=== PATIENT | male | born 1945 | race Caucasian/White ===

== ENCOUNTER 2020-06-13 11:29 | Outpatient (REF) | payer MEDICARE, MEDICAID, SELFPAY ==
[2020-06-13 13:59] LABS: MANUAL DIFF FLAG NO
[2020-06-13 14:04] LABS: Basophils Absolute Auto 0.1 X10*3/uL (0.0-0.2); Basophils Percent Auto 0.7 % (0-2); Eosinophils Absolute Auto 0.1 X10*3/uL (0.0-0.4); Eosinophils Percent Auto 1.9 % (0-4); Hematocrit 39.2 % (42-52); Hemoglobin 13.3 g/dl (14.0-18.0); Imm Gran Abs Auto 0.01 X10*3/uL (0.00-0.03); Imm Gran Pct Auto 0.1 % (0.0-0.4); Lymphocytes Absolute Auto 1.6 X10*3/uL (1.2-4.9); Lymphocytes Percent Auto 23.3 % (20-40); Mean Corpuscular HGB Conc 33.9 g/dl (31.0-36.0); Mean Corpuscular Hemoglobin 30.6 pg (27.0-33.0); Mean Corpuscular Volume 90.3 fL (80-98); Mean Platelet Volume 12.2 fL (9.4-12.4); Monocytes Absolute Auto 0.6 X10*3/uL (0.1-1.2); Monocytes Percent Auto 8.9 % (2-11); Neutrophils Absolute Auto 4.4 X10*3/uL (2.0-8.3); Neutrophils Percent Auto 65.1 % (45-73); Platelet Count 219 X10*3/uL (160-400); Red Blood Count 4.34 X10*6/uL (4.60-5.80); Red Cell Distribution Width 13.3 % (11.0-16.0); White Blood Count 6.8 X10*3/uL (4.8-10.8)
[2020-06-13 14:37] LABS: Alanine Aminotransferase 29 U/L (0-40); Albumin Level 4.3 g/dL (3.5-5.0); Alkaline Phosphatase 58 U/L (39-117); Anion Gap 14 (12-20); Aspartate Amino Transferase 28 U/L (5-37); Bilirubin Total 0.6 mg/dL (0.0-1.0); Blood Urea Nitrogen 14 mg/dL (9-16); Calcium 9.3 mg/dL (8.4-10.2); Carbon Dioxide 27 mmol/L (22-29); Chloride 103 mmol/L (96-108); Estimated Glomerular Filt Rate > 60; Glucose Random 106 mg/dL (60-115); Potassium 5.2 mmol/l (3.3-5.1); Sodium 139 mmol/L (135-145); Total Protein 6.9 g/dL (6.5-8.0)
[2020-06-13 14:38] LABS: Estimated Average Glucose 128 mg/dL; Hemoglobin A1c % 6.1 %
== END 2020-06-13 11:30 | disposition home or self-care (01) ==
LOC: HO.10HDL 11:29
PROVIDERS: Visit Provider Internal Medicine
DX: I10 Essential (primary) hypertension (principal); E11.9 Type 2 diabetes mellitus without complications
CPT/HCPCS: 36415; 80053; 82043; 83036; 85025

== ENCOUNTER 2020-10-01 10:40 | Outpatient (REF) | payer MEDICARE, MEDICAID, SELFPAY ==
[2020-10-01 11:07] LABS: Hematocrit 40.9 % (42-52); Hemoglobin 13.9 g/dl (14.0-18.0); Mean Corpuscular Hemoglobin 30.5 pg (27.0-33.0); Mean Corpuscular Volume 89.7 fL (80-98); Mean Platelet Volume 11.2 fL (9.4-12.4); Platelet Count 233 X10*3/uL (160-400); Red Blood Count 4.56 X10*6/uL (4.60-5.80); Red Cell Distribution Width 13.2 % (11.0-16.0); White Blood Count 8.5 X10*3/uL (4.8-10.8)
[2020-10-01 11:20] LABS: INTERNATIONAL NORM RATIO 1.1 (0.9-1.1); Prothrombin Time 13.4 SEC (10.8-13.0)
[2020-10-01 11:35] LABS: Alanine Aminotransferase 36 U/L (0-40); Albumin Level 4.5 g/dL (3.5-5.0); Alkaline Phosphatase 68 U/L (39-117); Anion Gap 10 (12-20); Aspartate Amino Transferase 33 U/L (5-37); Bilirubin Direct 0.3 mg/dL (0.0-0.5); Bilirubin Total 0.8 mg/dL (0.0-1.0); Blood Urea Nitrogen 15 mg/dL (9-16); Carbon Dioxide 30 mmol/L (22-29); Chloride 105 mmol/L (96-108); Cholesterol 122 mg/dL; Estimated Glomerular Filt Rate > 60; Glucose Random 108 mg/dL (60-115); HDL Cholesterol 37 mg/dL; LDL Cholesterol Calculated 68 mg/dl; Potassium 5.3 mmol/L (3.3-5.1); Sodium 140 mmol/L (135-145); Total Protein 7.4 g/dL (6.5-8.0); Triglycerides 86 mg/dL
[2020-10-01 11:49] LABS: Estimated Average Glucose 114 mg/dL; Hemoglobin A1C 135.9382 umol/L; Hemoglobin A1c % 5.6 %
[2020-10-01 11:56] LABS: Thyroid Stimulating Hormone 1.09 uIU/mL (0.32-4.0)
== END 2020-10-01 10:41 | disposition home or self-care (01) ==
LOC: HO.LAB 10:40
PROVIDERS: PCP Internal Medicine; Visit Provider Internal Medicine Cardiovascular Disease
DX: I48.3 Typical atrial flutter (principal); I10 Essential (primary) hypertension; I49.5 Sick sinus syndrome; E11.9 Type 2 diabetes mellitus without complications; E78.2 Mixed hyperlipidemia
CPT/HCPCS: 36415; 80051; 80061; 80076; 82565; 82947; 83036; 83735; 84443; 84520; 85027; 85610

== ENCOUNTER 2020-11-25 07:12 | Outpatient (REF) | payer MEDICARE, MEDICAID, SELFPAY ==
[2020-11-25 07:40] LABS: MANUAL DIFF FLAG NO
[2020-11-25 07:46] LABS: Basophils Percent Auto 0.5 % (0-2); Eosinophils Absolute Auto 0.1 X10*3/uL (0.0-0.4); Eosinophils Percent Auto 1.4 % (0-4); Hematocrit 41.4 % (42-52); Imm Gran Abs Auto 0.02 X10*3/uL (0.00-0.03); Imm Gran Pct Auto 0.2 % (0.0-0.4); Lymphocytes Absolute Auto 1.7 X10*3/uL (1.2-4.9); Lymphocytes Percent Auto 19.2 % (20-40); Mean Corpuscular HGB Conc 33.8 g/dl (31.0-36.0); Mean Corpuscular Hemoglobin 30.4 pg (27.0-33.0); Mean Platelet Volume 11.8 fL (9.4-12.4); Monocytes Absolute Auto 0.7 X10*3/uL (0.1-1.2); Monocytes Percent Auto 7.7 % (2-11); Neutrophils Absolute Auto 6.1 X10*3/uL (2.0-8.3); Platelet Count 223 X10*3/uL (160-400); Red Cell Distribution Width 13.7 % (11.0-16.0); White Blood Count 8.6 X10*3/uL (4.8-10.8)
[2020-11-25 08:14] LABS: Anion Gap 13 (12-20); Blood Urea Nitrogen 20 mg/dL (9-16); Calcium 10.5 mg/dL (8.4-10.2); Carbon Dioxide 28 mmol/L (22-29); Chloride 103 mmol/L (96-108); Estimated Glomerular Filt Rate 48; Glucose Random 186 mg/dL (60-115); Potassium 5.3 mmol/L (3.3-5.1); Sodium 139 mmol/L (135-145)
== END 2020-11-25 07:13 | disposition home or self-care (01) ==
LOC: HO.LAB 07:12
PROVIDERS: PCP Internal Medicine; Visit Provider Internal Medicine Cardiovascular Disease
DX: Z01.810 Encounter for preprocedural cardiovascular examination (principal); I49.5 Sick sinus syndrome
CPT/HCPCS: 36415; 80048; 85025

== ENCOUNTER 2021-04-27 07:40 | Emergency (ER) | payer MEDICARE, MEDICAID, SELFPAY ==
[2021-04-27 07:43] VITALS: BP 181/70; PULSE 71; RESP 19; TEMP 36.6; O2SAT 100; BMI 21.5
--- NOTE | 2021-04-27 08:47 | ED_ITS ---
HPI - General Adult General Chief complaint: General Medical Stated complaint: bleeding testicle Time Seen by Provider: 04/27/21 08:30 History of Present Illness HPI narrative: Patient is 75 years old presented today complaining that he has bleeding from his testicles. No pain. No systemic complaints. Patient claims that happened yesterday and happened again today. Has a history of being on aspirin. Related Data Allergies Allergy/AdvReac Type Severity Reaction Status Date / Time No Known Allergies Allergy Unknown UNKNOWN Unverified 04/18/20 15:54 [NO KNOWN ALLERGIES] Review of Systems Review of Systems: No fever no chills no nausea no vomiting no dizziness no no systemic complaints All systems reviewed otherwise negative Yes all other systems are reviewed and are negative [facility] Past Medical History Attestation statement: The following information was validated with the patient. Medical History Diabetes HTN (hypertension) Social History Social History Advance Directives: No Advance Directives Information Provided: No Physical Exam Vital Signs: Vital Signs: Last Vital Signs Temp 98 F 04/27/21 07:43 Pulse 71 04/27/21 07:43 Resp 19 04/27/21 07:43 BP 181/70 H 04/27/21 07:43 Pulse Ox 100 04/27/21 07:43 Body Mass Index 21.5 Appearance: Alert. Oriented X3. No acute distress. Eyes: Pupils equal, round and reactive to light. ENT: Pharynx normal. Neck: Normal inspection. Neck supple. No lymph nodes noted. No crepitus CVS: Normal heart rate and rhythm. Pulses normal. Normal S1 and S2 Respiratory: No respiratory distress. Breath sounds normal. No Wheezing. No rales Abdomen: Soft and nontender. No rigidity. No distention. good BS x4 Skin: Skin warm and dry. Normal skin color. Normal skin turgor. Genital exam. There is no lesion noted in the scrotum. Or the penis. There is no discharge on stripping of the penis. There is no testicular tenderness. Normal exam. Extremities: No lower extremity edema. Neurovascular intact to all extremities. No Lacerations. No Rash Neuro: Oriented X 3. No motor deficit. No sensory deficit. Moving all extermities. No slurred speech Medical Decision Making MDM Narrative Medical decision making narrative: Well-appearing no acute distress. Will get hemoglobin and monitor. Hemoglobin is normal. No acute bleeding. Will send patient to follow-up with urology. In stable condition. Lab Data Result diagrams: 04/27/21 09:03 Labs: Lab Results 04/27/21 Range/Units 09:03 WBC 9.0 (4.8-10.8) X10*3/uL RBC 4.42 L (4.60-5.80) X10*6/uL Hgb 13.4 L (14.0-18.0) g/dl Hct 39.3 L (42-52) % MCV 88.9 (80-98) fL MCH 30.3 (27.0-33.0) pg MCHC 34.1 (31.0-36.0) g/dl RDW 13.4 (11.0-16.0) % Plt Count 193 (160-400) X10*3/uL MPV 11.0 (9.4-12.4) fL Immature Gran % (Auto) 0.2 (0.0-0.4) % Neut % (Auto) 75.8 H (45-73) % Lymph % (Auto) 16.2 L (20-40) % Slope % (Auto) 5.8 (2-11) % Eos % (Auto) 1.3 (0-4) % Baso % (Auto) 0.7 (0-2) % Lymph # (Auto) 1.5 (1.2-4.9) X10*3/uL Slope # (Auto) 0.5 (0.1-1.2) X10*3/uL Eos # (Auto) 0.1 (0.0-0.4) X10*3/uL Baso # (Auto) 0.1 (0.0-0.2) X10*3/uL Abs Immat Gran (auto) 0.02 (0.00-0.03) X10*3/uL Absolute Neuts (auto) 6.8 (2.0-8.3) X10*3/uL Absolute Nucleated RBC 0.000 (0.0-0.012) X10*3/uL Nucleated RBC % (auto) 0.0 (0.0-0.2) /100WBC Discharge Plan Discharge Clinical Impression: Bleeding Patient Disposition: Home, Self-Care Additional Instructions: Apply local pressure if bleeding restarts Please follow-up with urology on an outpatient basis. Referrals: Hood Casey III, MD [Physician] - 2 days
[2021-04-27 09:07] LABS: MANUAL DIFF FLAG NO
[2021-04-27 09:09] LABS: Basophils Absolute Auto 0.1 X10*3/uL (0.0-0.2); Basophils Percent Auto 0.7 % (0-2); Eosinophils Absolute Auto 0.1 X10*3/uL (0.0-0.4); Eosinophils Percent Auto 1.3 % (0-4); Hematocrit 39.3 % (42-52); Hemoglobin 13.4 g/dl (14.0-18.0); Imm Gran Abs Auto 0.02 X10*3/uL (0.00-0.03); Imm Gran Pct Auto 0.2 % (0.0-0.4); Lymphocytes Absolute Auto 1.5 X10*3/uL (1.2-4.9); Lymphocytes Percent Auto 16.2 % (20-40); Mean Corpuscular HGB Conc 34.1 g/dl (31.0-36.0); Mean Corpuscular Hemoglobin 30.3 pg (27.0-33.0); Mean Corpuscular Volume 88.9 fL (80-98); Monocytes Absolute Auto 0.5 X10*3/uL (0.1-1.2); Monocytes Percent Auto 5.8 % (2-11); Neutrophils Absolute Auto 6.8 X10*3/uL (2.0-8.3); Neutrophils Percent Auto 75.8 % (45-73); Platelet Count 193 X10*3/uL (160-400); Red Blood Count 4.42 X10*6/uL (4.60-5.80); Red Cell Distribution Width 13.4 % (11.0-16.0)
== END 2021-04-27 10:51 | disposition home or self-care (01) ==
PROVIDERS: Emergency Provider Emergency Medicine Emergency Medical Services; PCP Internal Medicine
DX: R31.9 Hematuria, unspecified (principal); N50.812 Left testicular pain; N50.811 Right testicular pain; Z79.899 Other long term (current) drug therapy
CPT/HCPCS: 36415; 85025; 99283

== ENCOUNTER 2021-11-12 06:57 | Outpatient (REF) | payer MEDICARE, MEDICAID, SELFPAY ==
[2021-11-12 07:11] LABS: MANUAL DIFF FLAG NO
[2021-11-12 07:21] LABS: Basophils Absolute Auto 0.1 X10*3/uL (0.0-0.2); Basophils Percent Auto 0.9 % (0-2); Eosinophils Absolute Auto 0.2 X10*3/uL (0.0-0.4); Eosinophils Percent Auto 2.4 % (0-4); Hematocrit 41.7 % (42.0-52.0); Hemoglobin 14.1 g/dl (14.0-18.0); Imm Gran Abs Auto 0.02 X10*3/uL (0.00-0.03); Imm Gran Pct Auto 0.2 % (0.0-0.4); Lymphocytes Absolute Auto 1.6 X10*3/uL (1.2-4.9); Lymphocytes Percent Auto 20.3 % (20-40); Mean Corpuscular HGB Conc 33.8 g/dl (31.0-36.0); Mean Corpuscular Hemoglobin 29.5 pg (27.0-33.0); Mean Corpuscular Volume 87.2 fL (80.0-98.0); Mean Platelet Volume 10.6 fL (9.4-12.4); Monocytes Absolute Auto 0.8 X10*3/uL (0.1-1.2); Monocytes Percent Auto 9.5 % (2-11); Neutrophils Absolute Auto 5.4 x10*3/uL (2.0-8.3); Neutrophils Percent Auto 66.7 % (45-73); Platelet Count 292 X10*3/uL (160-400); Red Blood Count 4.78 X10*6/uL (4.60-5.80); Red Cell Distribution Width 13.4 % (11.0-16.0); White Blood Count 8.1 X10*3/uL (4.8-10.8)
[2021-11-12 07:34] LABS: Estimated Average Glucose 134 mg/dL; Hemoglobin A1c % 6.3 %
[2021-11-12 07:47] LABS: Alanine Aminotransferase 52 U/L (0-40); Albumin Level 4.4 g/dL (3.5-5.0); Alkaline Phosphatase 73 U/L (39-117); Anion Gap 12 (12-20); Aspartate Amino Transferase 41 U/L (5-37); Bilirubin Total 0.9 mg/dL (0.0-1.0); Blood Urea Nitrogen 13 mg/dL (9-16); Calcium 10.5 mg/dL (8.4-10.2); Carbon Dioxide 30 mmol/L (22-29); Chloride 101 mmol/L (96-108); Cholesterol 156 mg/dL; Estimated Glomerular Filt Rate 59; Glucose Fasting 163 mg/dL (60-99); HDL Cholesterol 30 mg/dL; LDL Cholesterol Calculated 100 mg/dl; Potassium 5.6 mmol/L (3.3-5.1); Sodium 137 mmol/L (135-145); Total Protein 7.5 g/dL (6.5-8.0); Triglycerides 133 mg/dL
[2021-11-12 08:09] LABS: Prostate Specific Antigen 2.73 ng/mL (<0.05-4.0)
[2021-11-12 09:11] LABS: Creatinine Urine 155.08 mg/dL; Microalbum/Creatinine Ratio Ur 14.1 ug/mg cr
== END 2021-11-12 06:58 | disposition home or self-care (01) ==
LOC: HO.LAB 06:57
PROVIDERS: PCP Internal Medicine; Visit Provider Internal Medicine
DX: E11.9 Type 2 diabetes mellitus without complications (principal); I10 Essential (primary) hypertension; N40.1 Benign prostatic hyperplasia with lower urinary tract symptoms; N13.8 Other obstructive and reflux uropathy; E78.00 Pure hypercholesterolemia, unspecified; Z12.5 Encounter for screening for malignant neoplasm of prostate
CPT/HCPCS: 36415; 80053; 80061; 82043; 83036; 84153; 85025

== ENCOUNTER 2022-05-06 09:52 | Outpatient (REF) | payer MEDICARE, MEDICAID, SELFPAY ==
[2022-05-06 10:48] LABS: Estimated Average Glucose 131 mg/dL; Hemoglobin A1c % 6.2 %
[2022-05-06 11:12] LABS: Alanine Aminotransferase 43 U/L (0-40); Albumin Level 4.3 g/dL (3.5-5.0); Alkaline Phosphatase 61 U/L (39-117); Anion Gap 17 (12-20); Aspartate Amino Transferase 34 U/L (5-37); Bilirubin Total 0.6 mg/dL (0.0-1.0); Blood Urea Nitrogen 15 mg/dL (9-16); Calcium 10.1 mg/dL (8.4-10.2); Carbon Dioxide 26 mmol/L (22-29); Chloride 99 mmol/L (96-108); Estimated Glomerular Filt Rate 52; Glucose Random 217 mg/dL (60-115); Potassium 5.2 mmol/L (3.3-5.1); Sodium 137 mmol/L (135-145); Total Protein 7.2 g/dL (6.5-8.0)
== END 2022-05-06 09:53 | disposition home or self-care (01) ==
LOC: HO.LAB 09:52
PROVIDERS: PCP Internal Medicine; Visit Provider Internal Medicine
DX: I12.9 Hypertensive chronic kidney disease with stage 1 through stage 4 chronic kidney disease, or unspecified chronic kidney disease (principal); E11.22 Type 2 diabetes mellitus with diabetic chronic kidney disease; N18.9 Chronic kidney disease, unspecified
CPT/HCPCS: 36415; 80053; 83036

== ENCOUNTER 2022-08-09 06:35 | Emergency (ER) | payer MEDICARE, MEDICAID, SELFPAY ==
[2022-08-09 06:43] VITALS: BP 166/68; PULSE 67; RESP 18; TEMP 36.2; O2SAT 99; BMI 20.6
[2022-08-09 07:51] VITALS: BP 147/76; PULSE 63; RESP 18; TEMP 36.2; O2SAT 99
--- NOTE | 2022-08-09 09:50 | ED_ITS ---
HPI - General Adult General Chief complaint: General Medical Stated complaint: Unable to use bathroom Time Seen by Provider: 08/09/22 09:06 Source: patient and family Mode of arrival: ambulatory Limitations: no limitations History of Present Illness HPI narrative: 77-year-old primarily Turkmen-speaking gentleman with past medical history constipation external hemorrhoids presents to the emergency department at the request of his , with the son, for complaints of a 2 day history of constipation. Patient states it is been recommended by his primary care provider that he uses MiraLax daily for treatment of chronic constipation, so however; patient has not been using MiraLax for several weeks. He states he drinks 2 large glasses of water and 1 cup of coffee daily. He reports he has positive flatus and denies any change in his appetite. He denies any abdominal pain, nausea, vomiting, or weight loss. Onset (ago): day(s) (2) Associated symptoms: denies other symptoms Treatments prior to arrival: none Related Data Allergies Allergy/AdvReac Type Severity Reaction Status Date / Time No Known Allergies Allergy Unknown UNKNOWN Verified 08/09/22 06:53 [NO KNOWN ALLERGIES] Review of Systems Review of Systems: Yes all other systems are reviewed and are negative [facility] Past Medical History Attestation statement: The following information was validated with the patient. Source: old records reviewed and obtained from family Medical History Diabetes HTN (hypertension) Social History Social History Advance Directives: No Physical Exam ED Vital Signs: Vital Signs - 24 hr 08/09/22 06:43 08/09/22 07:51 Temperature 97.2 F 97.2 F Pulse Rate 67 63 Respiratory Rate 18 18 Blood Pressure 166/68 H 147/76 H Pulse Oximetry 99 99 Oxygen Delivery Method Room Air Room Air BMI result Body Mass Index 20.6 Nursing notes and vital signs reviewed. GENERAL APPEARANCE: A&0 x 4, generally well appearing, no acute distress HENMT: Normal to inspection, atraumatic, face symmetrical. Normal external ears, nose, and oropharynx clear. EYE: PERRLA, EOM intact, structures appear normal NECK: Supple without lymphadenopathy. No stiffness or restricted ROM. CHEST: Normal to inspection HEART: Normal rate and regular rhythm, normal S1/S2, no M/R/G LUNGS: LS CTA, moving air well. Able to speak in complete sentences. No crackles, wheezes, or rhonchi auscultated ABDOMEN: Soft, nontender, nondistended. Normal bowel sounds noted BACK: No CVAT, no obvious deformity EXTREMITIES: Moving all extremities without difficulty. No cyanosis, clubbing, or edema. Normal capillary refill. NEUROLOGICAL: Alert and oriented, moving all 4 extremities with equal strength. CN not formally tested but appearing grossly intact. Observed to ambulate with normal gait. Cognition normal SKIN: Warm and dry without any lesions, rash, or visible sores PSYCH: Cooperative, normal affect, normal thought process Medical Decision Making Medical Decision Making MDM Narrative: 77-year-old primarily Turkmen-speaking gentleman with past medical history constipation external hemorrhoids presents to the emergency department at the request of his , with the son, for complaints of a 2 day history of constipation. Patient states it is been recommended by his primary care prov ider that he uses MiraLax daily for treatment of chronic constipation, so however; patient has not been using MiraLax for several weeks. Abdomen soft, nontender, with normal bowel sounds in all 4 quadrants with no discomfort with abdominal palpation. Patient states he has positive flatus. History and physical exam consistent with chronic constipation worsened by not following his prescribed bowel regimen of daily MiraLax. Patient educated to use 4 oz of MiraLax daily as prescribed by his primary care provider for control of chronic constipation. Educated that he may use twmo-pij-[id number] Dulcolax, Senna, suppositories, or a Fleet enema if he has not moved his bowels within the next air to. Recommend mid to return to the emergency department if he is unable to move his bowels in the next 2 days, unable to pass gas, has abdominal pain, nausea/vomiting, decreased appetite, or any other concerning emergent symptoms. Patient is safe for discharge at this time. HPI, PE, and plan discussed with patient and family with no unanswered questions at this time. Patient educated to return to the emergency department with new, worsening, or concerning emergent symptoms. Recommended to follow-up with her primary care provider for further treatment and management. *Refer to Course for additional information on consultations, diagnostic interpretation, consultations, emergency department stay, conversations with patient and family, shared decision making with patient, and more information on medical decision making* Discharge Plan Discharge Clinical Impression: Constipation Patient Disposition: Home, Self-Care Instructions: Constipation (ED), High Fiber Diet (ED), Fleet Enema (ED) Additional Instructions: You have constipation. Please use 4 oz of MiraLax daily as prescribed by your primary care provider for control of chronic constipation. You may use [id number]-klc-ekekpso Dulcolax to soften stools and he has bowel movements or Senna which is a laxative which will stimulate the bowels to evacuate stool. If you have not moved your bowels in several days and are uncomfortable, you may use axlx-wdl-pnwnyus enemas or suppositories as needed. Please increase your water consumption to aid in softening stools. Please return to the emergency department if you are unable to move her bowels in the next 2 days, if you are unable to pass gas, if you have abdominal pain, if you have difficulty eating, or if you have nausea/vomiting, or any other concerning emergent symptoms. Please follow-up with your primary care provider for further treatment and management. Referrals: Arcadio Faustin MD [Primary Care Provider] - Interventions: ED Discharge Assessment Last Done: 08/09/22 09:37 Discharge Date/Time: 08/09/22 09:37 Print Language: Turkmen
== END 2022-08-09 09:37 | disposition home or self-care (01) ==
PROVIDERS: Emergency Provider Emergency Medicine Emergency Medical Services; PCP Internal Medicine
DX: K59.00 Constipation, unspecified (principal)
CPT/HCPCS: 99283

== ENCOUNTER 2023-02-11 13:21 | Emergency (ER) | payer MEDICARE, MEDICAID, SELFPAY ==
--- NOTE | ~2023-02-11 | XR_ITS ---
EXAMINATION: XR LUMBOSACRAL SPINE CLINICAL INFORMATION: Fall, pain. COMPARISON: None available. TECHNIQUE: Three views of the lumbosacral spine. FINDINGS: There is mild straightening of 6 lumbar lordosis. The vertebral heights are normal. There is grade 1 anterolisthesis L5 over S1. Rest of the alignment is normal. Mild loss of L5-S1 disc level. Rest of the lumbar disc levels are normal. No aggressive lytic or sclerotic process seen. The paravertebral soft tissues are normal. XR/XR lumbar spine 2-3V IMPRESSION: Grade 1 anterolisthesis L5 over S1. Mild degenerative disc changes L5-S1 disc level. No visible acute fracture or dislocation seen.
--- NOTE | ~2023-02-11 | CT_ITS ---
EXAMINATION: CT HEAD/BRAIN WITHOUT CONTRAST CT CERVICAL SPINE WITHOUT CONTRAST CLINICAL INDICATION: Fall with head strike on thinners. COMPARISON: CT brain 03/18/[address] cervical spine 04/08/2019. TECHNIQUE: 5 mm thin axial and reformatted 2 mm thin sagittal and coronal images of brain were obtained. Subsequently axial 3 mm thin and reformatted 2 mm thin sagittal and coronal images of cervical spine were obtained. This CT examination was performed using dose optimization technique as appropriate, variously including the following: Automated exposure control Adjustment of MA and/or KV according to patient size(this includes techniques or standardized protocols for targeted exams where dose is matched to indication/reason for exam; extremities or head. Use of iterative reconstruction techniques. DLP: 879 mGy-cm FINDINGS: BRAIN: There is no acute intra-axial, extra-axial bleed, masses or midline shift. There is no acute infarction in evolution. There is no edema. The busch to white matter differentiation is maintained normal. Both lateral ventricles are symmetrical in size and configuration without enlargement. Bone windows reveal no calvarial abnormality. The paranasal sinuses and mastoid air cells are well aerated. There is no scalp soft tissue abnormality. CERVICAL SPINE: There is straightening of cervical lordosis. The vertebral heights and alignment is normal. There is severe loss of C6-C7 disc height with ventral spondylosis. No visible acute fracture, dislocation or subluxation seen. No bony erosive changes. There is no neck mass or abnormal lymphadenopathy. The airway is widely patent. The lung apices are clear. The prevertebral and paravertebral soft tissues are normal. CT/CT cervical spine wo IV con IMPRESSION: No acute intracranial process seen. No acute fracture, dislocation or subluxation seen in cervical spine.
--- NOTE | 2023-02-11 13:31 | ED.GENADULT ---
HPI - General Adult General Chief complaint: Back Pain/Injury Stated complaint: fall back and waist inj Time Seen by Provider: 02/11/23 16:23 Source: patient, family (son), RN notes reviewed and old records reviewed Mode of arrival: ambulatory Limitations: other (History of Alzheimer's dementia) History of Present Illness HPI narrative: 77-year-old male past medical history significant for Alzheimer's dementia, diabetes, hypertension presents to evaluation after a fall that happened yesterday. Most of the history is obtained from the patient's son who is bedside He reports the patient sustained a fall last night while trying to help his clean a spell in the kitchen. Appendage there was soap on the floor which caused the patient to slip and fall down. This was not witnessed, as the patient's was turn around time The patient is unsure if he hit his head or not but complains of mostly lower back pain. He usually takes Tylenol for his pain but did not take any Tylenol today He states his pain is mild Denies numbness, tingling, weakness Related Data Previous Rx's Medication Instructions Recorded baclofen 5 mg tablet 5 mg PO BID PRN muscle spasms #10 02/11/23 tabs Allergies Allergy/AdvReac Type Severity Reaction Status Date / Time No Known Allergies Allergy Unknown UNKNOWN Verified 08/09/22 06:53 [NO KNOWN ALLERGIES] Review of Systems Constitutional: Constitutional: Denies headache(s) and Denies weakness ENT: Denies headache(s) Musculoskeletal: Musculoskeletal: Reports back pain, Denies numbness and Denies tingling Neurologic: Denies headache(s), Denies numbness, Denies tingling and Denies weakness PMFSH Past Medical History Medical History Diabetes HTN (hypertension) Social History Social History Advance Directives: No Advance Directives Information Provided: Yes Physical Exam ED Vital Signs: Vital Signs - 24 hr 02/11/23 13:32 Temperature 97.4 F Pulse Rate 72 Respiratory Rate 18 Blood Pressure 151/75 H Pulse Oximetry 98 Oxygen Delivery Method Room Air BMI result Body Mass Index 21.7 Const General: healthy appearing, comfortable, no acute distress, alert and awake Nutritional Appearance: well nourished Orientation/consciousness: patient oriented x3 HENMT Head: Yes normocephalic and Yes atraumatic Eyes Eyelids: Yes eyelids normal Conjunctivae: conjunctivae normal Sclerae: sclerae normal Corneas: corneas normal Pupils: Equal, round and reactive pupils present EOM: EOMs intact bilaterally Neck Neck: Yes full ROM Resp Effort & Inspection: normal respiratory effort, able to speak in complete sentences and not labored Back/Spine/Pelvis Other: No C-spine, T-spine or lumbar spinal/vertebral tenderness Good range of motion to lower extremities with a negative straight leg raise bilaterally Skin General skin exam: no rashes or lesions noted and elasticity normal Neuro General: patient oriented x3 Cranial nerves: Yes Equal, round and reactive pupils present and Yes Bilaterally intact EOM present Cognition (Neuro): normal cognition Extrem Other: Moving all extremities well without any obvious deformities Course Course Course Narrative: This is a rapid medical exam: Additional HPI, ROS, PE not included below will be deferred to primary provider. Patient is a 77-year old male with history of Alzheimer's, DM, HTN presenting to the emergency department with complaint of lower back pain after a slip and fall at home yesterday. Son states that the patient's had soap on the kitchen floor and the patient slipped. Son denies loss of consciousness, patient does not recall the event. Patient did not want to come to the ED last night. He is not anticoagulated, but takes daily ASA. Patient was medicated with Tylenol by his . Son denies any nausea or vomiting. Plan: x-ray, CT head and neck Medical Decision Making Medical Decision Making [facility] Narrative: 77-year-old male presents for evaluation after a fall that happened last night. He complains of mostly lower back pain. It was not witnessed the patient is a poor historian, therefore a CT scan of brain and cervical spine were ordered. These images did not show any acute traumatic injuries. He does have straightening of lumbar and cervical spine. This was discussed with the patient and his son at bedside. The patient will treat his symptoms with Tylenol and we will prescribe a few doses of baclofen for continued pain Differential Diagnosis Muscle strain Radiculopathy Intracranial hemorrhage COVID fracture Concussion Contusion Vertebral fracture Independent Interpretation I performed an independent interpretation of an: Plain X-Ray (No acute compression fractures. Agree with radiology reading) Radiology Impression Discussion of test interpretation with radiology: I have reviewed the radiologist's reading. (No acute intracranial hemorrhage, mass effect.) Radiologist Impression: C-spine with loss of normal cervical lordosis but no acute fractures Discharge Plan Discharge Clinical Impression: Strain of lumbar region Patient Disposition: Home, Self-Care Instructions: Acute Low Back Pain (ED) Additional Instructions: The x-ray of your lower back showed mild arthritis There were no broken bones You may continue to use Tylenol for pain You may use baclofen for muscle spasms. This may make you sleepy, did not drink alcohol or drive after taking it It may help taking it just before bed to help you sleep Use warm compresses as needed Follow-up with your primary doctor Prescriptions: New baclofen 5 mg tablet 5 mg PO BID PRN (Reason: muscle spasms) Qty: 10 0RF
[2023-02-11 13:32] VITALS: BP 151/75; PULSE 72; RESP 18; TEMP 36.3; O2SAT 98; BMI 21.7
--- NOTE | 2023-02-11 15:41 | ECG_ITS ---
Test Reason : CHECK RHYTHM Blood Pressure : / mmHG Vent. Rate : 067 BPM Atrial Rate : 067 BPM P-R Int : 214 ms QRS Dur : 146 ms QT Int : 440 ms P-R-T Axes : 037 -56 117 degrees QTc Int : 464 ms Atrial-sensed ventricular-paced rhythm with prolonged AV conduction Abnormal ECG No previous ECGs available Referred By: Gareth Fernandez Electronically Signed By:KD PARNELL MD
== END 2023-02-11 17:18 | disposition home or self-care (01) ==
PROVIDERS: Emergency Provider Emergency Medicine; PCP Internal Medicine
DX: M54.50 Low back pain, unspecified (principal); G30.9 Alzheimer's disease, unspecified; M54.2 Cervicalgia; R51.9 Headache, unspecified; F02.80 Dementia in other diseases classified elsewhere, unspecified severity, without behavioral disturbance, psychotic disturbance, mood disturbance, and anxiety; R07.89 Other chest pain; I10 Essential (primary) hypertension; Z79.899 Other long term (current) drug therapy
CPT/HCPCS: 70450; 72100; 72125; 93005; 99282; 99284

== ENCOUNTER → 2023-02-11 15:41 | Outpatient (BNV) | payer MEDICARE, MEDICAID, SELFPAY | PROVIDERS: Emergency Provider Emergency Medicine; PCP Internal Medicine; Visit Provider Internal Medicine Cardiovascular Disease | DX: R94.31 Abnormal electrocardiogram [ECG] [EKG] (principal) | CPT/HCPCS: 93010 ==

== ENCOUNTER 2023-02-19 09:58 | Outpatient (REF) | payer MEDICARE, MEDICAID, SELFPAY ==
[2023-02-19 10:33] LABS: MANUAL DIFF FLAG NO
[2023-02-19 10:34] LABS: Basophils Absolute Auto 0.1 X10*3/uL (0.0-0.2); Basophils Percent Auto 0.6 % (0-2); Eosinophils Absolute Auto 0.1 X10*3/uL (0.0-0.4); Eosinophils Percent Auto 0.8 % (0-4); Hematocrit 40.9 % (42.0-52.0); Hemoglobin 13.8 g/dl (14.0-18.0); Imm Gran Abs Auto 0.04 X10*3/uL (0.00-0.03); Imm Gran Pct Auto 0.4 % (0.0-0.4); Lymphocytes Absolute Auto 1.6 X10*3/uL (1.2-4.9); Lymphocytes Percent Auto 16.5 % (20-40); Mean Corpuscular HGB Conc 33.7 g/dl (31.0-36.0); Mean Corpuscular Hemoglobin 29.9 pg (27.0-33.0); Mean Corpuscular Volume 88.5 fL (80.0-98.0); Mean Platelet Volume 10.7 fL (9.4-12.4); Monocytes Absolute Auto 0.8 X10*3/uL (0.1-1.2); Monocytes Percent Auto 8.2 % (2-11); Neutrophils Absolute Auto 7.2 x10*3/uL (2.0-8.3); Neutrophils Percent Auto 73.5 % (45-73); Platelet Count 305 X10*3/uL (160-400); Red Blood Count 4.62 X10*6/uL (4.60-5.80); Red Cell Distribution Width 13.4 % (11.0-16.0); White Blood Count 9.8 X10*3/uL (4.8-10.8)
[2023-02-19 10:52] LABS: Estimated Average Glucose 128 mg/dL; Hemoglobin A1c % 6.1 %
[2023-02-19 11:10] LABS: Alanine Aminotransferase 30 U/L (0-40); Albumin Level 4.4 g/dL (3.5-5.0); Alkaline Phosphatase 71 U/L (39-117); Anion Gap 12 (12-20); Aspartate Amino Transferase 29 U/L (5-37); Bilirubin Total 0.6 mg/dL (0.0-1.0); Blood Urea Nitrogen 14 mg/dL (9-16); Calcium 10.3 mg/dL (8.4-10.2); Carbon Dioxide 29 mmol/L (22-29); Chloride 101 mmol/L (96-108); Cholesterol 141 mg/dL; Estimated Glomerular Filt Rate 57; Glucose Random 136 mg/dL (60-115); Potassium 5.2 mmol/L (3.3-5.1); Sodium 137 mmol/L (135-145); Total Protein 7.6 g/dL (6.5-8.0)
[2023-02-19 11:28] LABS: Prostate Specific Antigen 2.79 ng/mL (<0.05-4.0)
[2023-02-19 14:36] LABS: Creatinine Urine 79.38 mg/dL; Microalbum/Creatinine Ratio Ur 37.7 ug/mg cr
== END 2023-02-19 09:59 | disposition home or self-care (01) ==
LOC: HO.10HDL 09:58
PROVIDERS: Visit Provider Internal Medicine
DX: E11.9 Type 2 diabetes mellitus without complications (principal); I10 Essential (primary) hypertension; E78.00 Pure hypercholesterolemia, unspecified; Z12.5 Encounter for screening for malignant neoplasm of prostate
CPT/HCPCS: 36415; 80053; 82043; 82465; 83036; 84153; 85025

== ENCOUNTER 2024-12-13 13:09 | Outpatient (AMB) | payer MEDICARE, MEDICAID, SELFPAY ==
--- NOTE | 2024-12-13 13:17 | MHC.PC.OV ---
Vital Signs 12/13/24 13:21 12/13/24 13:35 Height 5 ft 9 in Weight 71.668 kg BMI 23.3 BP 148/80 H 132/77 Pulse 76 Temp 98.3 F Temp Source Temporal Artery Scan Pulse Oximetry (%) 99 Oxygen Delivery Method Room Air Intake Visit Reasons: Routine BP Transport Driver Required: No Accompanied by: Son Allergies No Known Allergies [NO KNOWN ALLERGIES] Allergy (Unknown, Verified 12/13/24 13:19) UNKNOWN HPI HPI Comments History of Present Illness Details 79-year-old male with history of hypertension, [id number] type 2 diabetes, hyperlipidemia, and Alzheimer's dementia presents to the office today accompanied by his son Renzo for routine follow-up and to establish care. He has no concerns at this time nor does his son. He is living with his and no longer drives. He is following with Neurology and is taking memantine and Seroquel. His son reports mentation has been stable. He has been compliant with all of his medications, managed by his . Glucose levels at home have been good per his son. Also checking blood pressures at home but is unsure of the results. He has no concerns at this time. [facility] Medical History (Updated 12/13/24 @ 13:27 by SUNG Griffith) Alzheimer's dementia Encounter for checking and testing of cardiac pacemaker pulse generator [battery] Pacemaker HLD (hyperlipidemia) Diabetes HTN (hypertension) Physical exam (Primary Care) Vital Signs: Last Vital Signs Temp 98.3 F 12/13/24 13:21 Pulse 76 12/13/24 13:21 BP 148/80 H 12/13/24 13:21 Pulse Ox 99 12/13/24 13:21 Oxygen Delivery Method Room Air 12/13/24 13:21 BMI result Body Mass Index 23.3 Const Other: Constitutional - Awake and Alert, No apparent distress Eyes - PERRL Cardiovascular - S1S2, RRR, No edema Respiratory - Normal lung expansion, Normal respiratory effort, No respiratory distress, CTA bilaterally Extremities - no calf tenderness bilaterally, no swelling Skin - Warm/Dry Neurological - Alert & oriented to self and place Psychological - Appropriate affect Coding Level of Care Code New Pt Level 4 (51589) Complex EM visit Add On G2211 Diagnoses HTN (hypertension) I10 Diabetes E11.9 HLD (hyperlipidemia) E78.5 Alzheimer's dementia G30.9; F02.80 Assessment & Plan Assessment & Plan (1) HTN (hypertension): Code(s): I10 - Essential (primary) hypertension Category: Medical Plan: Blood pressure reasonably controlled at 132/77 on recheck. He will continue on lisinopril 20 mg twice daily and amlodipine 5 mg daily. Continue low-sodium diet. (2) Diabetes: Code(s): E11.9 - Type 2 diabetes mellitus without complications Category: Medical Plan: Hemoglobin A1c ordered though blood glucose levels at home due sound controlled. He will continue metformin 500 mg twice daily and continue diabetic diet. Microalbumin urine ordered. Continue with diabetic eye follow-ups (3) HLD (hyperlipidemia): Code(s): E78.5 - Hyperlipidemia, unspecified Category: Medical Plan: Lipid panel ordered. Continue pravastatin 10 mg daily. Low-fat diet encouraged. (4) Alzheimer's dementia: Code(s): G30.9 - Alzheimer's disease, unspecified; F02.80 - Dementia in other diseases classified elsewhere, unspecified severity, without behavioral disturbance, psychotic disturbance, mood disturbance, and anxiety Category: Medical Plan: Appears stable. Living at home and is not driving. Eating well, no evidence of failure to thrive. Continue following with Neurology and take Seroquel and memantine as prescribed. Plan Follow-up as scheduled for annual physical exam. Labs typically completed today. Orders: Orders Hemoglobin A1c Today E11.9 - Type 2 diabetes mellitus without complications, E78.5 - Hyperlipidemia, unspecified, F02.80 - Dementia in other diseases classified elsewhere, unspecified severity, without behavioral disturbance, psychotic disturbance, mood disturbance, and anxiety, G30.9 - Alzheimer's disease, unspecified, I10 - Essential (primary) hypertension Liver Panel Today E11.9 - Type 2 diabetes mellitus without complications, E78.5 - Hyperlipidemia, unspecified, F02.80 - Dementia in other diseases classified elsewhere, unspecified severity, without behavioral disturbance, psychotic disturbance, mood disturbance, and anxiety, G30.9 - Alzheimer's disease, unspecified, I10 - Essential (primary) hypertension TSH reflex Free T4 Today E11.9 - Type 2 diabetes mellitus without complications, E78.5 - Hyperlipidemia, unspecified, F02.80 - Dementia in other diseases classified elsewhere, unspecified severity, without behavioral disturbance, psychotic disturbance, mood disturbance, and anxiety, G30.9 - Alzheimer's disease, unspecified, I10 - Essential (primary) hypertension Basic Metabolic Panel Today E11.9 - Type 2 diabetes mellitus without complications, E78.5 - Hyperlipidemia, unspecified, F02.80 - Dementia in other diseases classified elsewhere, unspecified severity, without behavioral disturbance, psychotic disturbance, mood disturbance, and anxiety, G30.9 - Alzheimer's disease, unspecified, I10 - Essential (primary) hypertension Complete Blood Count Auto Diff Today E11.9 - Type 2 diabetes mellitus without complications, E78.5 - Hyperlipidemia, unspecified, F02.80 - Dementia in other diseases classified elsewhere, unspecified severity, without behavioral disturbance, psychotic disturbance, mood disturbance, and anxiety, G30.9 - Alzheimer's disease, unspecified, I10 - Essential (primary) hypertension Lipid Panel Today E11.9 - Type 2 diabetes mellitus without complications, E78.5 - Hyperlipidemia, unspecified, F02.80 - Dementia in other diseases classified elsewhere, unspecified severity, without behavioral disturbance, psychotic disturbance, mood disturbance, and anxiety, G30.9 - Alzheimer's disease, unspecified, I10 - Essential (primary) hypertension Microalbumin, Random (w Creat) Today E11.9 - Type 2 diabetes mellitus without complications, E78.5 - Hyperlipidemia, unspecified, F02.80 - Dementia in other diseases classified elsewhere, unspecified severity, without behavioral disturbance, psychotic disturbance, mood disturbance, and anxiety, G30.9 - Alzheimer's disease, unspecified, I10 - Essential (primary) hypertension Medications: Discontinued baclofen Discontinued Reason: Patient Completed Course 5 mg PO BID PRN 10 tabs 0RF muscle spasms
[2024-12-13 13:21] VITALS: BP 148/80; PULSE 76; TEMP 36.8; O2SAT 99; BMI 23.3
--- OUTSIDE RECORDS SUMMARY | 2024-12-13 13:26 | XMS_ITS | Patient Health Record ---
Author Organization [facility] Address [address] [place] [address] Care Team Providers Care Heel Gummer Name Role Phone Arcadio Faustin MD Primary Care Provider Javon Brown Jr Unavailable Allergies No Known Allergies Reason For Referral No Information Medications Medication SIG (Take, Route, Frequency, Duration) Notes Start Date End Date Status Lisinopril 20 MG TAKE 1 TABLET BY SARA TH TWICE A DAY Oral for 90 Active Donepezil HCl 5 MG TAKE 1 TABLET BEFORE MEAL ORALLY ONCE A DAY Oral for 90 Active amLODIPine Besylate 5 MG Oral for 90 Active MiraLax (colon prep) 17 GM/SCOOP mixed with Gatorade or Crystal Light Orally begin at 5:00 p.m. the day before the procedure for 1 day 02/22/2023 Active Aspir-Low 81 MG 1 tablet Orally Once a day for 30 day(s) 02/22/2023 Active Sotalol HCl 80 MG TAKE 1 TABLET BY SARA TH TWICE A DAY Oral for 90 Active metFORMIN HCl 500 MG Oral for 90 Active Pravastatin Sodium 10 MG Oral for 90 Active Memantine HCl 10 MG TAKE 1 TABLET BY SARA TH TWICE A DAY FOR 30 DAYS Oral for 90 Active Immunizations Vaccine Route Administration Date Status Comme nts Influenza Unknown 06/23/2022 Administered Social History Tobacco Use: Social History Observation Description Date Details (start date - stop date) Never Smoker NA - NA Tobacco Use/Smoking Question Answer Notes Patient is a nonsmoker Alcohol Screen Question Answer Notes Did you have a drink containing alcohol in the p ast year? No Points 0 Interpretation Negative Problems Problem Type SNOMED Code ICD Code Onset Dates Problem Status W/U Status Risk Notes Problem [id number] Abnormal findings in stool (R19.5) Active confirmed Plan Of Treatment Future Test Test Name Order Date UPPER GI ENDOSCOPY 02/22/2023 COLONOSCOPY 02/22/2023 Insurance Providers Payer Name Payer Address Payer Phone Subscriber Number Group Number Insured Name Patient Relationship to Insured Coverage Start Date Coverage End Date MEDICARE OF [place] [address] [place] HAUSER [id number] COLON RUPALI MCKEON Self - patient is the insured MEDICAID OF [facility] [address] [place] [address] [id number] COLON RUPALI MCKEON Self - patient is the insured Medical (General) History Medical History History ICD Code diabetes Hypertension Hyperlipidemia Complete heart block status post pacemak er placement Surgical History Surgery Date(Month/Year) Pacemaker generator change 12/20
[2024-12-13 13:35] VITALS: BP 132/77
== END 2024-12-13 14:14 | disposition home or self-care (01) ==
LOC: HO.HMCHD 13:09
PROVIDERS: PCP Internal Medicine; Visit Provider Physician Assistant
DX: I10 Essential (primary) hypertension (principal); E11.9 Type 2 diabetes mellitus without complications; E78.5 Hyperlipidemia, unspecified; G30.9 Alzheimer's disease, unspecified; F02.80 Dementia in other diseases classified elsewhere, unspecified severity, without behavioral disturbance, psychotic disturbance, mood disturbance, and anxiety

== ENCOUNTER → 2024-12-13 13:09 | Outpatient (BNVA) | payer OTHER, SELFPAY | PROVIDERS: PCP Internal Medicine; Visit Provider Physician Assistant | DX: I10 Essential (primary) hypertension (principal); E11.9 Type 2 diabetes mellitus without complications; E78.5 Hyperlipidemia, unspecified; G30.9 Alzheimer's disease, unspecified; F02.80 Dementia in other diseases classified elsewhere, unspecified severity, without behavioral disturbance, psychotic disturbance, mood disturbance, and anxiety; Z79.84 Long term (current) use of oral hypoglycemic drugs; Z79.899 Other long term (current) drug therapy | CPT/HCPCS: 99202 ==

== ENCOUNTER 2024-12-14 09:12 | Outpatient (REF) | payer OTHER, SELFPAY ==
[2024-12-14 09:27] LABS: MANUAL DIFF FLAG NO
--- OUTSIDE RECORDS SUMMARY | 2024-12-14 09:48 | XMS_ITS | Patient Health Record ---
Author Organization [facility] Address [address] [place] [address] Care Team Providers Care Er Registrar Name Role Phone Arcadio Faustin MD Primary [...] Problem Status W/U Status Risk Notes Problem [id number] Abnormal findings in stool (R19.5) Active confirmed Plan Of Treatment Future Test Test Name Order Date UPPER GI ENDOSCOPY 02/22/2023 COLONOSCOPY 02/22/2023 Insurance Providers Payer Name Payer Address Payer Phone Subscriber Number Group Number Insured Name Patient Relationship to Insured Coverage Start Date Coverage End Date MEDICARE OF [place] [address] [place]USER [id number] COLON RUPALI MCKEON Self - patient is the insured MEDICAID OF [facility] [address] [place] [address] [id number] COLON RUPALI MCKEON Self - patient is the insured Medical (General) History Medical History History ICD Code diabetes Hypertension Hyperlipidemia Complete heart block status post pacemak er placement Surgical History Surgery Date(Month/Year) Pacemaker generator change 12/20
[2024-12-14 10:40] LABS: Basophils Absolute Auto 0.1 X10*3/uL (0.0-0.2); Basophils Percent Auto 0.7 % (0-2); Eosinophils Absolute Auto 0.2 X10*3/uL (0.0-0.4); Eosinophils Percent Auto 2.2 % (0-4); Hematocrit 38.3 % (42.0-52.0); Hemoglobin 13.3 g/dl (14.0-18.0); Imm Gran Abs Auto 0.02 X10*3/uL (0.00-0.03); Imm Gran Pct Auto 0.2 % (0.0-0.4); Lymphocytes Absolute Auto 1.6 X10*3/uL (1.2-4.9); Lymphocytes Percent Auto 19.9 % (20-40); Mean Corpuscular HGB Conc 34.7 g/dl (31.0-36.0); Mean Corpuscular Hemoglobin 30.6 pg (27.0-33.0); Mean Corpuscular Volume 88.2 fL (80.0-98.0); Mean Platelet Volume 11.2 fL (9.4-12.4); Monocytes Absolute Auto 0.6 X10*3/uL (0.1-1.2); Neutrophils Absolute Auto 5.7 x10*3/uL (2.0-8.3); Platelet Count 198 X10*3/uL (160-400); Red Blood Count 4.34 X10*6/uL (4.60-5.80); White Blood Count 8.1 X10*3/uL (4.8-10.8)
[2024-12-14 10:58] LABS: Estimated Average Glucose 186 mg/dL; Hemoglobin A1C 223.3819 umol/L; Hemoglobin A1c % 8.1 % (<6.0); Total Hemoglobin (HGBA1C) 3457.5269 umol/L
[2024-12-14 11:36] LABS: Alanine Aminotransferase 107 U/L (0-40); Albumin Level 4.2 g/dL (3.5-5.0); Alkaline Phosphatase 73 U/L (39-117); Anion Gap 14 (12-20); Aspartate Amino Transferase 88 U/L (5-37); Bilirubin Direct 0.2 mg/dL (0.0-0.5); Bilirubin Total 0.7 mg/dL (0.0-1.0); Blood Urea Nitrogen 14 mg/dL (9-16); Calcium 10.3 mg/dL (8.4-10.2); Carbon Dioxide 27 mmol/L (22-29); Chloride 104 mmol/L (96-108); Cholesterol 151 mg/dL (<200); Estimated Glomerular Filt Rate 55; Glucose Random 241 mg/dL (60-115); HDL Cholesterol 29 mg/dL (>40); LDL Cholesterol Calculated 97 mg/dL (<100); Potassium 4.5 mmol/L (3.3-5.1); Sodium 140 mmol/L (135-145); Total Protein 7.2 g/dL (6.5-8.0); Triglycerides 128 mg/dL (<150)
[2024-12-14 11:38] LABS: TSH reflex Free T4 1.01 uIU/mL (0.32-4.0)
[2024-12-14 12:09] LABS: Creatinine Urine 84.06 mg/dL; Microalbum/Creatinine Ratio Ur 51.1 ug/mg cr (<30)
== END 2024-12-14 09:13 | disposition home or self-care (01) ==
LOC: HO.LAB 09:12
PROVIDERS: PCP Physician Assistant; Visit Provider Physician Assistant
DX: E11.9 Type 2 diabetes mellitus without complications (principal); G30.9 Alzheimer's disease, unspecified; F02.80 Dementia in other diseases classified elsewhere, unspecified severity, without behavioral disturbance, psychotic disturbance, mood disturbance, and anxiety; E78.5 Hyperlipidemia, unspecified; I10 Essential (primary) hypertension
CPT/HCPCS: 36415; 80048; 80061; 80076; 82043; 82570; 83036; 84443; 85025

== ENCOUNTER 2025-02-21 13:49 | Outpatient (AMB) | payer OTHER, SELFPAY ==
[2025-02-21 13:35] VITALS: BP 130/74; PULSE 70; TEMP 36.8; O2SAT 98; BMI 22.7
--- NOTE | 2025-02-21 13:35 | A.OFFPC_ITS ---
Vital Signs 02/21/25 13:35 Height 5 ft 9 in Weight 154 lb BMI 22.7 BP 130/74 Blood Pressure Location Rt brachial Position Sitting Pulse 70 Pulse Source Pulse Oximeter Temp 98.2 F Temp Source Axillary Pulse Oximetry (%) 98 Oxygen Delivery Method Room Air Intake Visit Reasons: Annual Service Assistant Required: No Accompanied by: Son Allergies No Known Allergies (NO KNOWN ALLERGIES) Allergy (Unknown, Verified 02/21/25 14:17) UNKNOWN Tobacco use date assessed: 02/21/25 Fall risk assessment: No Falls in past year Last assessed Fall Risk: 02/21/25 Dental Screening Dental Screen Date: 02/21/25 Did you have a dental visit in the last 12 months?: Yes Did you have a dental problem in the last 6 months where you did not have access to dental care?: No [facility] Medical History Microalbuminuria due to type 2 diabetes mellitus Alzheimer's dementia Encounter for checking and testing of cardiac pacemaker pulse generator [battery] Pacemaker HLD (hyperlipidemia) Diabetes HTN (hypertension) Family History (Updated 02/21/25 @ 14:02 by Loren Robert MA) Mother No problems noted. Father No problems noted. Social History Housing: House Patient Tobacco Use Status: Never used Tobacco e-Cigarette/Vaping Use: Never Used service: No Current occupational status: retired Cognitive needs: No Hearing needs: No Vision needs: Yes (reading glasses) Questionnaire PHQ-9 Over the last 2 weeks, how often have you been bothered by any of the following problems? 1. Little interest or pleasure in doing things: not at all 2. Feeling down, depressed, or hopeless: not at all 3. Trouble falling or staying asleep, or sleeping too much: not at all 4. Feeling tired or having little energy: not at all 5. Poor appetite or overeating: not at all 6. Feeling bad about yourself - or that you are a failure or have let yourself or your family down: not at all 7. Trouble concentrating on things, such as reading the newspaper or watching television: not at all 8. Moving or speaking so slowly that other people could have noticed. Or the opposite - being so fidgety or restless that you have been moving around a lot more than usual: not at all 9. Thoughts that you would be better off or of hurting yourself in some way: not at all Total score: 0 Source: Developed by Drs. Saad Gibbons, Devan Calix and colleagues, with an educational yong from [employer]. Thrive Questionnaire Date Thrive assessed: 02/21/25 I am a: Patient Within the past 12 months, did the food you bought not last and you didn't have the money to get more?: Never true Within the past 12 months, did you worry whether your food would run out before you got money to buy more?: Never true Do you have trouble paying for medicines?: No Do you have trouble getting transportation to medical appointments?: No Do you have trouble paying your heating and electricity bill?: No Do you have trouble taking care of your child, family member or friend?: No Do you have trouble with day-to-day activities such as bathing, preparing meals, shopping, managing finances, etc.?: No Are you currently unemployed and looking for a job?: No Are you interested in more education?: No THRIVE Score: 0 AUDIT C Alcohol Use Questionnaire (AUDIT-C) 1. How often do you have a drink containing alcohol?: Never 3. How often do you have six or more drinks on one occasion?: Never Total Score: 0 AWAIS-7 AMB Questionnaire AWAIS-7 Date AWAIS - 7 assessed: 02/21/25 Feeling nervous, anxious, or on edge: 0 = Not at all Not being able to stop or control worryin = Not at all Worrying too much about different things: 0 = Not at all Trouble relaxin = Not at all Being so restless that it is hard to sit still: 0 = Not at all Becoming easily annoyed or irritable: 0 = Not at all Feeling afraid as if something awful might happen: 0 = Not at all Total AWAIS-7 score (0-4 normal; 5-9 mild; 10-14 moderate; 15-21 severe): 0 Source: Developed by Drs. Saad Gibbons, eDvan Calix and colleagues, with an educational yong from [employer]. Physical exam (Primary Care) Vital Signs: Last Vital Signs Temp 98.2 F 02/21/25 13:35 Pulse 70 02/21/25 13:35 BP 130/74 02/21/25 13:35 Pulse Ox 98 02/21/25 13:35 Oxygen Delivery Method Room Air 02/21/25 13:35 BMI result Body Mass Index 22.7 Tobacco/Smoking Status: Tobacco use Status Tobacco use date assessed 02/21/25 02/21/25 13:36 Patient Tobacco Use Status Never used Tobacco 02/21/25 13:36 e-Cigarette/Vaping Use Never Used 02/21/25 13:36 PHQ-9: PHQ-9 Score PHQ-9: Total score 0 02/21/25 14:03 Thrive Assessment: Date of Thrive Assessment Date Thrive assessed 02/21/25 02/21/25 13:36 Coding Level of Care Code Est Pt Prev Care >65y(17442) Diagnoses HTN (hypertension) I10 Diabetes E11.9 Alzheimer's dementia G30.9; F02.80 Annual physical exam Z00.00 Assessment & Plan Assessment & Plan (1) HTN (hypertension): Code(s): I10 - Essential (primary) hypertension Category: Medical Plan: BP in range. Continue current med (2) Diabetes: Code(s): E11.9 - Type 2 diabetes mellitus without complications Category: Medical Plan: Patient not very compliant with checking sugars. Moderate control of sugars is planned, (3) Alzheimer's dementia: Code(s): G30.9 - Alzheimer's disease, unspecified; F02.80 - Dementia in other diseases classified elsewhere, unspecified severity, without behavioral disturbance, psychotic disturbance, mood disturbance, and anxiety Category: Medical Plan: Condition is stable (4) Annual physical exam: Code(s): Z00.00 - Encounter for general adult medical examination without abnormal findings Plan: History of Present Illness - The patient is an 79-year-old male presenting for an annual physical examination. - Diabetes mellitus: The patient is on metformin twice daily, and his blood sugar levels are monitored by his mother, though specific values were not provided. - Dementia: The patient has difficulty with driving and memory, as indicated by the need for assistance from his mother for managing his diabetes. Social History Review of Systems - General: Reports feeling good overall. - Neurological: Denies any new or worsening symptoms related to dementia. - Vision: Reports good vision. Physical Exam General: Cooperative and healthy appearing Nutritional Appearance: Well nourished Orientation/consciousness: Patient oriented x3 Limitations: No limitations Head: Normal to inspection General: Appearance normal, both eyes and all related structures Neck: Normal visual inspection Chest: Normal palpation of entire chest wall Respiratory: N ormal respiratory effort Neurology: Patient oriented x3, no dementia Results Plan 1. Diabetes Mellitus - Continue metformin twice daily. - Monitor blood glucose levels regularly. 2. Dementia - Monitor cognitive function and safety, particularly regarding driving. Discussion Notes Patient Instructions - Continue taking metformin as prescribed. - Ensure regular monitoring of blood sugar levels. - Follow up in six months for routine check-up.
== END 2025-02-21 14:53 | disposition home or self-care (01) ==
LOC: HO.HMCHD 13:49
PROVIDERS: PCP Internal Medicine; Visit Provider Internal Medicine
DX: I10 Essential (primary) hypertension (principal); E11.9 Type 2 diabetes mellitus without complications; G30.9 Alzheimer's disease, unspecified; F02.80 Dementia in other diseases classified elsewhere, unspecified severity, without behavioral disturbance, psychotic disturbance, mood disturbance, and anxiety; Z00.00 Encounter for general adult medical examination without abnormal findings

== ENCOUNTER → 2025-02-21 13:49 | Outpatient (BNVA) | payer OTHER, SELFPAY | PROVIDERS: PCP Internal Medicine; Visit Provider Internal Medicine | DX: Z00.00 Encounter for general adult medical examination without abnormal findings (principal); I10 Essential (primary) hypertension; E11.9 Type 2 diabetes mellitus without complications; G30.9 Alzheimer's disease, unspecified; F02.80 Dementia in other diseases classified elsewhere, unspecified severity, without behavioral disturbance, psychotic disturbance, mood disturbance, and anxiety | CPT/HCPCS: 96127; 99397 ==

== ENCOUNTER 2025-06-14 09:50 | Outpatient (AMB) | payer OTHER, SELFPAY ==
--- NOTE | 2025-06-14 09:59 | A.OFFVIS_ITS ---
Intake Visit Reasons: 6 month f/u Accompanied by: Son Allergies No Known Allergies (NO KNOWN ALLERGIES) Allergy (Unknown, Verified 06/14/25 10:03) UNKNOWN Medication List - Last Reconciled 06/14/25 by Sharon Dobson CNP amlodipine 5 mg PO DAILY 90 days [aspirin 1 tab PO DAILY] lisinopril 20 mg PO BID memantine 10 mg PO BID metformin 500 mg PO BID pravastatin 10 mg PO DAILY quetiapine 25 mg PO BEDTIME sotalol 80 mg PO BID HPI Comments Details: He was here with his son who had note with updates. Memory was not so good. He was forgetting family, occasionally not recognizing his and thinking she was someone else. He also often thought he was in a different state, usually thinking he was in [place] where he lived many years ago. He had some trouble swallowing pills and family was starting to crush medications which helped. No trouble swallowing otherwise. Sleep was not good and he was punching fonseca because he did not want to sleep. Behavior during the day could be agitated at times. He has wandered out of the house twice in the last 6 months, once was around 1am and he was trying to open a neighbor's door. Family has alarms on doors and cameras now, and he has not wandered out of house again. No falls. He also wandered out of the house in spring 2024 looking for his when she went to the store and he was home by himself. Someone saw him outside and called the police. Had some trouble recognizing family, including his .?Does crosswords, goes for walks, and does some gardening. Does not drive. Repeats himself frequently and has short term memory problems. 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 He himself is not aware of it and feels that he is fine and has no complaints. He has well-controlled hypertension, diabetes, hyperlipidemia and has a cardiac pacemaker for several years following a syncopal episode. He has no gait problems. No headache or dizziness, no balance problems or bladder control problems. [facility] Medical History Microalbuminuria due to type 2 diabetes mellitus Alzheimer's dementia Encounter for checking and testing of cardiac pacemaker pulse generator [battery] Pacemaker HLD (hyperlipidemia) Diabetes HTN (hypertension) Family History (Updated 02/21/25 @ 14:02 by Loren Robert MA) Mother No problems noted. Father No problems noted. Social History Housing: House Patient Tobacco Use Status: Never used Tobacco e-Cigarette/Vaping Use: Never Used service: No Current occupational status: retired Cognitive needs: No Hearing needs: No Vision needs: Yes (reading glasses) Review of Systems Const Denies chills, Denies daytime sleepiness, Denies difficulty sleeping, Denies fatigue, Denies fever(s), Denies frequent falls, Denies headache(s), Denies increased appetite, Denies poor appetite, Denies snoring, Denies weakness, Denies weight gain and Denies weight loss Eyes Denies loss of vision ENT Denies vertigo, Denies dizziness, Denies headache(s) and Denies neck pain Card Denies chest pain at rest, Denies chest pain with activity, Denies syncope, Denies leg edema, Denies palpitations, Denies dyspnea and Denies dyspnea on exertion Resp Denies cough, Denies dyspnea, Denies dyspnea on exertion and Denies snoring GI Denies abdominal pain, Denies constipation, Denies heartburn, Denies diarrhea and Denies nausea Denies urinary frequency, Denies urinary incontinence and Denies urinary urgency Musc Denies abnormal gait, Denies back pain, Denies myalgias, Denies arthralgias, Denies neck pain, Denies numbness and Denies tingling Neuro Denies abnormal gait, Denies vertigo, Denies dizziness, Denies syncope, Denies frequent falls, Denies headache(s), Denies lack of coordination, Denies loss of vision, Reports memory loss, Denies numbness, Denies Other visual disturbances, Denies restless legs, Denies seizure-like activity, Denies tingling, Denies paresthesias, Denies tremor(s) and Denies weakness Psych Denies anxiety, Denies depression, Denies auditory hallucinations, Reports memory loss and Denies visual hallucinations Endo Denies fatigue and Denies palpitations Physical Exam Const Other: General Appearance:? normal, in no acute distress. Heart:? S1, S2 normal, no murmurs. Lungs:? clear anteriorly and posteriorly. Musculoskeletal:? normal. Extremities:? no edema. Psych:? alert, as below. Neuro Other: Abnormal Neurological Findings:?MMSE <17/30. He was unable to tell me his age or birthday. He was able to tell me he was here with his son and his name (Renzo). He was able to tell me we are in [place], but not state. Mental Status: alert, as below. Cranial Nerves: Pupils are equal, round, and reactive to light. External ocular muscles are intact. Visual barajas are full, no ptosis. Face is symmetrical, no facial weakness or droop. Facial sensations are normal. Tongue protrudes in midline. Palate elevates symmetrically. Shoulder shrugging is normal Motor Examination: Normal muscle tone, bulk and strength. No atrophy or fasciculations. No drift of the extended upper extremities. DTR 2+. Plantars are flexor. . Sensory Exam: Normal light touch, temperature, pinprick, vibration, and joint- position sensations. Rhomberg sign is absent. Coordination: No ataxia. No titubation. Gait Exam: Within normal limits. Cerebellar Signs: [id number] is okay. Extrapyramidal System: No tremor, rigidity with normal facial expressions. No bradykinesia. No bradyphrenia. Normal arm swing and posture. No propulsion or retropulsion. Speech: Normal. MMSE Level of Consciousness: Alert. Orientation: Does know correct year, month, date, day and season. Knows correct city. Does not know county and state. Does not know correct location and floor. Registration: Able to register 3 objects. Attention: Serial 7's performed accurately to 79 Recall: Able to recall 0 out of 3 objects. Language: Normal spontaneous speech, fluency, repetition, naming, comprehension, reading, and writing. Total Score: <17/30. Results Reviewed Results Reviewed: 04/01/2020 EEG- WNL CT brain shows age related atrophy and microvascular changes. Labs normal K 5.2 Assessment & Plan Assessment & Plan (1) Alzheimer's dementia: Code(s): G30.9 - Alzheimer's disease, unspecified; F02.80 - Dementia in other diseases classified elsewhere, unspecified severity, without behavioral disturbance, psychotic disturbance, mood disturbance, and anxiety Category: Medical Qualifiers: Alzheimer's disease onset: unspecified onset Dementia severity: unspecified severity Dementia behavioral or psychological symptom: unspecified whether behavioral, psychotic, or mood disturbance or anxiety Qualified Code(s): G30.9 - Alzheimer's disease, unspecified; F02.80 - Dementia in other diseases classified elsewhere, unspecified severity, without behavioral disturbance, psychotic disturbance, mood disturbance, and anxiety Plan: Continue memantine 10mg 1 tablet twice a day. Increase quetiapine 25mg 2 tablets at bedtime and 1/2 tablet daily as needed. Follow up in 3 months or sooner as needed. Plan Meds tried: donepezil (side effects) Medications: Changed From quetiapine 25 mg PO BEDTIME 90 tabs 1RF To quetiapine 25 mg orally 2 tablets at bedtime and 1/2 tablet at bedtime; 225 tabs 1RF 90 days From memantine 10 mg PO BID To memantine 10 mg PO BID 180 tabs 1RF 90 days Coding Level of Care Code [facility] Pt Level 4 (22214) Diagnoses Alzheimer's dementia, unspecified dementia severity, unspecified timing of dementia onset, unspecified whether behavioral, psychotic, or mood disturbance or anxiety G30.9; F02.80 Alzheimer's disease onset: unspecified onset Dementia severity: unspecified severity Dementia behavioral or psychological symptom: unspecified whether behavioral, psychotic, or mood disturbance or anxiety
--- OUTSIDE RECORDS SUMMARY | 2025-06-14 11:37 | XMS_ITS ---
Author Organization Unknown ENCOUNTERS Encounter Performer Location Date Diagnosis Diagnosis Status Pre Admit Javon [address] [id number] [address] [address] [id number] [facility] Emergency [address] [address] [id number] [facility] Emergency Deysi [address] [address] [id number] [facility] Outpatient [address] [address] [id number] ATW *Note: Encounters from your own facility or health system may be excluded. Allergies, Adverse Reactions, Alerts Allergen Type Severity Identification Date Medications Name Date Quantity Days Supplied GPI Number
--- OUTSIDE RECORDS SUMMARY | 2025-06-14 11:37 | XMS_ITS | Patient Health Record ---
Author Organization [facility] Address [address] [place] [address] Care Team Providers Care Apartment Hotel Manager Name Role Phone Roxie (RETIRED) Arcadio MEADE Primary Care Provide Javon Babin Jr Unavailable Allergies No Known Allergies Reason For Referral No Information Medications Medication SIG (Take, Route, Frequency, Duration) Notes Start Date End Date Status Lisinopril 20 MG TAKE 1 TABLET BY SARA TH TWICE A DAY Oral; Duration: 90 Active Donepezil HCl 5 MG TAKE 1 TABLET BEFORE MEAL ORALLY ONCE A DAY Oral; Duration: 90 Active amLODIPine Besylate 5 MG Oral; Duration: 90 Active MiraLax (colon prep) 17 GM/SCOOP mixed with Gatorade or Crystal Light Orally begin at 5:00 p.m. the day before the procedure; Duration: 1 day 02/22/2023 Active Aspir-Low 81 MG 1 tablet Orally Once a day; Duration: 30 day(s) 02/22/2023 Active Sotalol HCl 80 MG TAKE 1 TABLET BY SARA TH TWICE A DAY Oral; Duration: 90 Active metFORMIN HCl 500 MG Oral; Duration: 90 Active Pravastatin Sodium 10 MG Oral; Duration: 90 Active Memantine HCl 10 MG TAKE 1 TABLET BY SARA TH TWICE A DAY FOR 30 DAYS Oral; Duration: 90 Active Immunizations Vaccine Route Administration Date [...] Problem Status W/U Status Risk Notes Problem Abnormal feces ([id number]) Abnormal findings in stool (R19.5) Active confirmed Plan Of Treatment Future Test Test Name Order Date UPPER GI ENDOSCOPY 02/22/2023 COLONOSCOPY 02/22/2023 Insurance Providers Payer Name Payer Address Payer Phone Subscriber Number Group Number Insured Name Patient Relationship to Insured Coverage Start Date Coverage End Date MEDICARE OF [place] [address] [place] [phone] [id number] COLON RUPALI MCKEON Self - patient is the insured MEDICAID OF [facility] [address] [place] [phone] [id number] COLON RUPALI MCKEON Self - patient is the insured Medical (General) History Medical History History ICD Code diabetes Hypertension Hyperlipidemia Complete heart block status post pacemak er placement Surgical History Surgery Date(Month/Year) Pacemaker generator change 12/20
== END 2025-06-14 10:18 | disposition home or self-care (01) ==
LOC: HO.HSM 09:51
PROVIDERS: PCP Physician Assistant; Referring Provider Internal Medicine; Visit Provider Registered Nurse
DX: G30.9 Alzheimer's disease, unspecified (principal); F02.80 Dementia in other diseases classified elsewhere, unspecified severity, without behavioral disturbance, psychotic disturbance, mood disturbance, and anxiety
CPT/HCPCS: 99214

== ENCOUNTER → 2025-06-14 09:50 | Outpatient (BNVA) | payer OTHER, SELFPAY | PROVIDERS: PCP Physician Assistant; Referring Provider Internal Medicine; Visit Provider Registered Nurse | DX: G30.9 Alzheimer's disease, unspecified (principal); F02.80 Dementia in other diseases classified elsewhere, unspecified severity, without behavioral disturbance, psychotic disturbance, mood disturbance, and anxiety | CPT/HCPCS: 99212 ==

== ENCOUNTER 2025-07-31 10:10 | Outpatient (AMB) | payer OTHER, SELFPAY ==
--- NOTE | 2025-07-31 10:13 | A.OFFPC_ITS ---
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 Radiology Required: No Accompanied by: Son Allergies No Known Allergies (NO KNOWN ALLERGIES) Allergy (Unknown, Verified 07/31/25 10:14) UNKNOWN Medication List - Last Reconciled 07/31/25 by All Palomares MD amlodipine 5 mg PO DAILY 90 days [aspirin 1 tab PO DAILY] lisinopril 20 mg PO BID memantine 10 mg PO BID 90 days metformin 500 mg PO BID pravastatin 10 mg PO DAILY quetiapine 25 mg orally 2 tablets at bedtime and 1/2 tablet daily as needed; 90 days sotalol 80 mg PO BID Tobacco use date assessed: 02/21/25 Fall risk assessment: No Falls in past year Last assessed Fall Risk: 07/31/25 Dental Screening Dental Screen Date: 02/21/25 HPI HPI Comments History of Present Illness Details History of Present Illness The patient is an 80-year-old male presenting with difficulty with bowel movements and pain on sitting, accompanied by his caregiver. The symptoms began approximately one week ago and are characterized by pain while sitting, believed to be due to hemorrhoids. His caregiver noted one instance of a small amount of blood in the stool. The patient has been having small but frequent bowel movements daily and is passing gas. He does not scream in pain during defecation. A similar episode occurred about two years ago, for which he was seen in the emergency room and advised to use Preparation H. He was given a donut pillow at that time but does not use it. There has been no recent, consistent use of stool softeners like MiraLax. His past medical history is significant for Alzheimer's disease with associated mood changes, hypertension, hyperlipidemia, and diabetes. He is followed by a neurologist for his Alzheimer's. Regarding preventative care, he previously refused to undergo a colonoscopy but did complete a stool test. Medical History: - Alzheimer's disease with associated mo od changes - Hypertension - Hyperlipidemia - Diabetes - History of hemorrhoids, with a prior e mergency room visit approximately two years ago Medications: - Amlodipine 5 mg once a day for hyperte nsion - Lisinopril 20 mg twice a day for hyper tension - Sotalol 80 mg twice a day for hyperten natasha - Pravastatin 10 mg for hyperlipidemia - Memantine 10 mg twice a day for Alzhei lillian's disease - Quetiapine 25 mg twice a day for mood stabilization - Metformin 500 mg twice a day for diabe gissell Diagnostic Results: - [facility] Social History - Functional Status: The patient is most ly sedentary and sits all day. Health Maintenance - A follow-up appointment is scheduled i n 3 months for a physical examination. - Blood work will be ordered to be done one week prior to the follow-up visit. - The patient refused a colonoscopy for colon cancer screening; therefore, a home stool test kit will be provided. Patient was informed and verbally consented to the use of an ambient scribe for clinic note documentation during this visit. Vital signs reviewed. Comprehensive history, review of systems, and physical exam completed. Medications, allergies, and problem list reviewed and updated. Counseling provided on nutrition, regular exercise, sleep hygiene, and moderation of alcohol use. Discussed age-appropriate screenings (mammogram, colonoscopy, Pap, bone density) and immunizations (flu, COVID, shingles, Tdap). Screened for depression, fall risk, and home safety; no current concerns. Discussed stress management, dental and vision care, and importance of ongoing preventive follow-up. Routine labs ordered for metabolic and lipid screening. Patient educated on healthy lifestyle and agrees with the plan. [facility] Medical History (Updated 07/31/25 @ 10:48 by All Palomares MD) External hemorrhoid Microalbuminuria due to type 2 diabetes mellitus Alzheimer's dementia Encounter for checking and testing of cardiac pacemaker pulse generator [battery] Pacemaker HLD (hyperlipidemia) Diabetes HTN (hypertension) Family History (Updated 02/21/25 @ 14:02 by Loren Robert MA) Mother No problems noted. Father No problems noted. Social History Housing: House Patient Tobacco Use Status: Never used Tobacco e-Cigarette/Vaping Use: Never Used service: No Current occupational status: retired Cognitive needs: No Hearing needs: No Vision needs: Yes (reading glasses) Questionnaire Thrive Questionnaire Date Thrive assessed: 02/21/25 AUDIT C Alcohol Use Questionnaire (AUDIT-C) 1. How often do you have a drink containing alcohol?: Never 3. How often do you have six or more drinks on one occasion?: Never Total Score: 0 AWAIS-7 AMB Questionnaire AWAIS-7 Date AWAIS - 7 assessed: 02/21/25 Source: Developed by Drs. Saad Gibbons, Jumana Howard, Devan Branham and colleagues, with an educational yong from [employer] Review of Systems Narrative Review of Systems - Gastrointestinal: Reports pain on sitting, having small volume bowel movements frequently, passes gas, and had one episode of blood in the stool. Denies severe pain with defecation. - Psychiatric: Has mood changes associated with Alzheimer's disease. All systems reviewed & are unremarkable except as reviewed in HPI and above Physical exam (Primary Care) Vital Signs: Last Vital Signs Temp 97.1 F 07/31/25 10:14 Pulse 81 07/31/25 10:14 Resp 16 07/31/25 10:14 BP 140/76 H 07/31/25 10:14 Pulse Ox 97 07/31/25 10:14 Oxygen Delivery Method Room Air 07/31/25 10:14 BMI result Body Mass Index 21.9 Tobacco/Smoking Status: Tobacco use Status Tobacco use date assessed 02/21/25 07/31/25 10:17 Patient Tobacco Use Status Never used Tobacco 07/31/25 10:17 e-Cigarette/Vaping Use Never Used 07/31/25 10:17 Thrive Assessment: Date of Thrive Assessment Date Thrive assessed 02/21/25 07/31/25 10:17 Narrative Physical Exam General: +Alert and oriented, Well nourished, No acute distress. Eye: Pupils are equal, round and reactive to light, Intact accommodation, Extraocular movements are intact, Normal conjunctiva, Vision unchanged. HENT: Normocephalic, Atraumatic, Tympanic membranes are clear, Normal hearing, Oral mucosa is moist, No pharyngeal erythema, Ear canals patent. Respiratory: Lungs CTA bilaterally, No wheeze, Respirations are non-labored. Cardiovascular: Regular rate, Regular rhythm, S1 auscultated, S2 auscultated, No murmur, Good pulses equal in all extremities, Normal peripheral perfusion, No edema. Gastrointestinal: Soft, Non-tender, Non-distended, Normal bowel sounds, No organomegaly, External hemorrhoid noted. Musculoskeletal: Normal range of motion, Normal strength, No tenderness, No swelling, No deformity, Normal gait. Integumentary: Warm, Dry, Morris, Intact. Neurologic: Alert, Oriented, Normal sensory, Normal motor function, No focal defects, Cranial Nerves II-XII are grossly intact, Normal deep tendon reflexes. Psychiatric: Cooperative, Appropriate mood & affect, Normal judgment. Coding Level of Care Code Est Pt Level 4 (48686) Add On Problem Visit Only Diagnoses External hemorrhoid K64.4 Alzheimer's dementia, unspecified dementia severity, unspecified timing of dementia onset, unspecified whether behavioral, psychotic, or mood disturbance or anxiety G30.9; F02.80 Alzheimer's disease onset: unspecified onset Dementia severity: unspecified severity Dementia behavioral or psychological symptom: unspecified whether behavioral, psychotic, or mood disturbance or anxiety Primary hypertension I10 Hypertension type: primary hypertension Other hyperlipidemia E78.49 Hyperlipidemia type: other hyperlipidemia Type 2 diabetes mellitus without complication, without long-term current use of insulin E11.9 Diabetes mellitus type: type 2 Diabetes mellitus truck terminal manager insulin use: without truck terminal manager use Diabetes mellitus complication status: without complication Assessment & Plan Assessment & Plan (1) External hemorrhoid: Comment: - The patient presents with a large external hemorrhoid causing pain on sitting and associated changes in bowel habits, specifically small, frequent stools. An internal obstruction is less likely given he is passing gas. The plan is to manage conservatively with stool softeners and topical treatment. If symptoms persist or worsen, a surgical consultation will be considered. - Start MiraLax, one scoop mixed with water, twice daily (morning and evening) to soften stool. Will send a prescription to the pharmacy. The dose can be titrated down if he develops diarrhea. - Use rblj-dgt-fcfupst hemorrhoid cream, such as Preparation H, for local pain relief. - Consider referral to a general surgeon for hemorrhoid removal if his discomfort continues to be a problem. Code(s): K64.4 - Residual hemorrhoidal skin tags Category: Medical (2) Alzheimer's dementia: Comment: - The patient's Alzheimer's disease is being managed with memantine 10 mg twice daily and quetiapine 25 mg twice daily is used for mood stabilization. - He is followed by a neurologist for this condition. - The plan is to continue the current medication regimen. Code(s): G30.9 - Alzheimer's disease, unspecified; F02.80 - Dementia in other diseases classified elsewhere, unspecified severity, without behavioral disturbance, psychotic disturbance, mood disturbance, and anxiety Category: Medical Qualifiers: Alzheimer's disease onset: unspecified onset Dementia severity: unspecified severity Dementia behavioral or psychological symptom: unspecified whether behavioral, psychotic, or mood disturbance or anxiety Qualified Code(s): G30.9 - Alzheimer's disease, unspecified; F02.80 - Dementia in other diseases classified elsewhere, unspecified severity, without behavioral disturbance, psychotic disturbance, mood disturbance, and anxiety (3) HTN (hypertension): Comment: - The patient's hypertension is managed with amlodipine 5 mg daily, lisinopril 20 mg twice daily, and sotalol 80 mg twice daily. - The plan is to continue the current medications. Code(s): I10 - Essential (primary) hypertension Category: Medical Qualifiers: Hypertension type: primary hypertension Qualified Code(s): I10 - Essential (primary) hypertension (4) HLD (hyperlipidemia): Comment: - The patient's hyperlipidemia is managed with pravastatin 10 mg. - The plan is to continue the current medication. Code(s): E78.5 - Hyperlipidemia, unspecified Category: Medical Qualifiers: Hyperlipidemia type: other hyperlipidemia Qualified Code(s): E78.49 - Other hyperlipidemia (5) Diabetes: Comment: - The patient's diabetes is managed with metformin 500 mg twice a day. - The plan is to continue the current medication. Code(s): E11.9 - Type 2 diabetes mellitus without complications Category: Medical Qualifiers: Diabetes mellitus type: type 2 Diabetes mellitus truck terminal manager insulin use: without chcf use Diabetes mellitus complication status: without complication Qualified Code(s): E11.9 - Type 2 diabetes mellitus without complications Plan: Health Maintenance: - A follow-up appointment is scheduled in 3 months for a physical examination. - Blood work will be ordered to be done one week prior to the follow-up visit. - The patient refused a colonoscopy for colon cancer screening; therefore, a home stool test kit will be provided. Patient was informed and verbally consented to the use of an ambient scribe for clinic note documentation during this visit. Plan I examined the patient and confirmed the presence of a large external hemorrhoid. I explained to his caregiver that while the hemorrhoid can cause pain, it is unlikely to be causing a blockage, as he is still passing gas. I recommended conservative management, including starting MiraLax twice daily to soften stools and using an opcz-xqs-vocattt hemorrhoid cream for local pain relief. I advised that if the discomfort persists, we can refer him to a general surgeon for potential removal. We discussed the importance of colon cancer screening. Since the patient has refused a colonoscopy in the past, I recommended proceeding with a stool-based test, which was agreeable. I have scheduled a follow-up visit in three months, which will serve as his physical, and ordered blood work to be completed before that appointment. Orders: Orders Hemoglobin A1c 3 Months Z00.00 - Encounter for general adult medical examination without abnormal findings HIV Ab/Ag 3 Months Z00.00 - Encounter for general adult medical examination without abnormal findings Lipid Panel 3 Months Z00.00 - Encounter for general adult medical examination without abnormal findings Syphilis Screen 3 Months Z00.00 - Encounter for general adult medical examination without abnormal findings TSH reflex Free T4 3 Months Z00.00 - Encounter for general adult medical examination without abnormal findings Complete Blood Count Auto Diff 3 Months Z00.00 - Encounter for general adult medical examination without abnormal findings Comprehensive Met. Panel 3 Months Z00.00 - Encounter for general adult medical examination without abnormal findings Microalbumin, Random (w Creat) 3 Months Z00.00 - Encounter for general adult medical examination without abnormal findings Vitamin D 25-OH Total 3 Months Z00.00 - Encounter for general adult medical examination without abnormal findings Referrals Cologuard Test Z12.11 - Encounter for screening for malignant neoplasm of colon Medications: New polyethylene glycol 3350 (Miralax) 17 grams PO BID 510 grams 0RF Patient Instructions: - Start taking MiraLax to help soften your stool. Mix one scoop in a drink in the morning and one in the evening. - If you start having diarrhea, you can take the MiraLax less often. - You can buy a cream for hemorrhoids at the pharmacy, like Preparation H, to help with any pain. - A kit to test your stool at home for colon cancer screening will be sent to you. - Please get your blood work done about one week before your next appointment. - Your next appointment will be in three months.
[2025-07-31 10:14] VITALS: BP 140/76; PULSE 81; RESP 16; TEMP 36.2; O2SAT 97; BMI 21.9
--- OUTSIDE RECORDS SUMMARY | 2025-07-31 13:29 | XMS_ITS | Patient Health Record ---
Author Organization [facility] Address [address] [place] [address] Care Team Providers Care Systems Integrator Name Role Phone Roxie (RETIRED) Arcadio MEADE Primary Care Provide Javon Babin Jr Unavailable Allergies No Known Allergies Reason For Referral No Information Medications Medication SIG (Take, Route, Frequency, Duration) Notes Start Date End Date Status Lisinopril 20 MG Tablet TAKE 1 TABLET BY MOUTH TWICE A DAY Oral; Duration: 90 Active Donepezil HCl 5 MG Tablet TAKE 1 TABLET BEFORE MEAL ORALLY ONCE A DAY Oral; Duration: 90 Active amLODIPine Besylate 5 MG Tablet Oral; Duration: 90 Active MiraLax (colon prep) 17 GM/SCOOP Powder mixed with Gatorade or Crystal Light Orally begin at 5:00 p.m. the day before the procedure; Duration: 1 day 02/22/2023 Active Aspir-Low 81 MG Tablet Delayed Release 1 tablet Orally Once a day; Duration: 30 day(s) 02/22/2023 Active Sotalol HCl 80 MG Tablet TAKE 1 TABLET B Y MOUTH TWICE A DAY Oral; Duration: 90 Active metFORMIN HCl 500 MG Tablet Oral; Duration: 90 Active Pravastatin Sodium 10 MG Tablet Oral; Duration: 90 Active Memantine HCl 10 MG Tablet TAKE 1 TABLET BY MOUTH TWICE A DAY FOR 30 DAYS Oral; Duration: 90 Active Immunizations Vaccine Route Administration Date Status Comme nts Influenza Unknown 06/23/2022 Administered Social History Tobacco Use: Social History Observation Description Date Details (start date - stop date) Never Smoker NA - NA Social History Drugs/Alcohol: Social Info Question Answer Notes Alcohol Screen Did you have a drink containing alcohol in the past year? No Points 0 Interpretation Negative Tobacco Use: Social Info Question Answer Notes Tobacco Use/Smoking Patient is a nonsmoker Additional Details Category Social Info Options Details Miscellaneous: Marital status: Occupation: retired Problems Problem Type SNOMED Code ICD Code Onset Dates Problem Status W/U Status Risk Notes Problem Abnormal feces (320176348) Abnormal findings in stool (R19.5) Active confirmed Plan Of Treatment Future Test Test Name Order Date UPPER GI ENDOSCOPY 02/22/2023 COLONOSCOPY 02/22/2023 Insurance Providers Payer Name Payer Address Payer Phone Subscriber Number Group Number Insured Name Patient Relationship to Insured Coverage Start Date Coverage End Date MEDICARE OF [place] [address] [place] [id number] COLON RUPALI MCKEON Self - patient is the insured MEDICAID OF [facility] [address] [place] [address] [id number] COLON RUPALI MCKEON Self - patient is the insured Medical (General) History Medical History History ICD Code diabetes Hypertension Hyperlipidemia Complete heart block status post pacemak er placement Surgical History Surgery Date(Month/Year) Pacemaker generator change 12/20
== END 2025-07-31 10:48 | disposition home or self-care (01) ==
LOC: HO.HMCHD 10:11
PROVIDERS: PCP Physician Assistant; Visit Provider Student in an Organized Health Care Education/Training Program
DX: K64.4 Residual hemorrhoidal skin tags (principal); G30.9 Alzheimer's disease, unspecified; F02.80 Dementia in other diseases classified elsewhere, unspecified severity, without behavioral disturbance, psychotic disturbance, mood disturbance, and anxiety; I10 Essential (primary) hypertension; E78.49 Other hyperlipidemia; E11.9 Type 2 diabetes mellitus without complications

== ENCOUNTER → 2025-07-31 10:10 | Outpatient (BNVA) | payer OTHER, SELFPAY | PROVIDERS: PCP Physician Assistant; Visit Provider Student in an Organized Health Care Education/Training Program | DX: K64.4 Residual hemorrhoidal skin tags (principal); G30.9 Alzheimer's disease, unspecified; F02.80 Dementia in other diseases classified elsewhere, unspecified severity, without behavioral disturbance, psychotic disturbance, mood disturbance, and anxiety; I10 Essential (primary) hypertension; E78.49 Other hyperlipidemia; E11.9 Type 2 diabetes mellitus without complications; Z79.84 Long term (current) use of oral hypoglycemic drugs; Z79.899 Other long term (current) drug therapy | CPT/HCPCS: 99212 ==